=== PATIENT | male | born 1985 | race Hispanic/Latino ===

== ENCOUNTER 2017-12-22 09:34 | Emergency (ER) | payer OTHER ==
[2017-12-22] MEDS ORDERED: Ketorolac Tromethamine 60 MG/2 ML VIAL ONE (10:36)
== END 2017-12-22 11:01 | disposition home or self-care (01) ==
LOC: ERS 09:34
DX: S09.22XA Traumatic rupture of left ear drum, initial encounter (principal); W50.0XXA Accidental hit or strike by another person, initial encounter
CPT/HCPCS: 96372; J1885